=== PATIENT | female | born 1980 | race Caucasian/White ===

== ENCOUNTER 2022-05-03 11:00 | Outpatient (CLI) | payer BC, SELFPAY ==
--- NOTE | ~2022-05-03 | PE_ITS ---
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 10.028 mCi of 18-fluorodeoxyglucose (18-FDG) was adminis tered i.v. Low dose computed tomography (CT) images were acquired from the base of the brain to the p roximal thighs for attenuation correction and anatomic localization. Positron emission tomography (PE T) images were acquired in the same distribution beginning 60 minutes after injection. The dose-lengt h product (DLP) was 221.14 mGy-cm. COMPARISON: 04/18/2022 FINDINGS: Head/neck: No abnormal FDG uptake is identified. FDG activity in the vocal cords without suspicious C T correlate is likely physiologic. Chest: There is a 4.4 x 2.7 cm mass of the left lower lobe which contains calcification. There are so me focal areas of abnormal FDG uptake within the mass with an SUV max of 6.8. Overall size is slightl y increased since the comparison examination. There are airspace opacities of the right middle lobe w hich demonstrate decrease since the comparison CT and demonstrate low-level FDG uptake, likely resolv ing pneumonia. There are multiple calcified bilateral hilar and mediastinal lymph nodes. A partially calcified right lower paratracheal lymph node demonstrates mild FDG uptake with an SUV max of 3.5, pr obable old granulomatous disease. The heart size is normal. There is no pneumothorax. A small left pl eural effusion is present which has decreased in size. Abdomen/pelvis/proximal thighs: Physiologic FDG activity is present in the bowel and urinary tract. N o abnormal FDG uptake is identified. The liver, spleen, pancreas, gallbladder, and adrenal glands are normal. There is a 10 mm nonobstructing stone of the left kidney. The right kidney is unremarkable. No pathologically enlarged abdominal or pelvic lymph nodes are identified. There is no free intraperi toneal gas or evidence of bowel obstruction. A moderate volume of colonic stool is present. Musculoskeletal: No abnormal FDG uptake is identified. IMPRESSION: 1. Left lower lobe mass with focal areas of internal abnormal FDG uptake. Given the presence of an ad jacent pleural effusion, findings could reflect rounded atelectasis with superimposed pneumonia. Diff erential includes underlying malignancy. The only images available for comparison are dated 04/18/2022 . If older comparisons are available, these would be helpful in determining chronicity of the mass. I f unavailable, CT guided biopsy or short-term follow-up in 4-6 weeks could be considered. Reviewed, dictated and finalized at location B. IMPRESSION: 1. Left lower lobe mass with focal areas of internal abnormal FDG uptake. Given the presence of an adjacent pleural effusion, findings could reflect rounded a telectasis with superimposed pneumonia. Differential includes underlying malign stephenie. The only images available for comparison are dated 04/18/2022. If older co mparisons are available, these would be helpful in determining chronicity of th e mass. If unavailable, CT guided biopsy or short-term follow-up in 4-6 weeks c ould be considered.
[2022-05-03 11:55] LABS: Glucose Point of Care 93 mg/dl (65-105)
== END 2022-05-03 11:01 | disposition home or self-care (01) ==
PROVIDERS: PCP Family Medicine; Visit Provider Internal Medicine Hematology & Oncology
DX: C34.32 Malignant neoplasm of lower lobe, left bronchus or lung (principal)
CPT/HCPCS: 78815; A9552

== ENCOUNTER 2022-05-11 01:58 | Outpatient (CLI) | payer BC, SELFPAY ==
[2022-05-04 17:29] VITALS: BMI 17.4
--- NOTE | 2022-05-05 13:37 | PC.NURSE ---
Pre Radiology instructions Report to the Outpatient Waiting Room, entrance under the green pavilion located off [facility], at time ____0900___ on date __05/11/22 . Procedure Time: ____1100____. One visitor will be allowed to accompany the patient into the hospital. The visitor will be instructed to remain with patient at all times or leave the building. We will allow the visitor to come back to the postoperative area when patient is ready. You and your visitor will be asked a series of questions to screen for COVID 19 for your protection. A mask is required within the hospital. Patients are to have no food or drink 6 hours prior to procedure time Driving will be restricted after the procedure, you must have a person to drive you home. Labs will be drawn in preop area and once reviewed, you will be taken to radiology area for procedure. When the procedure is completed, you will be taken to outpatient where you will be monitored for several hours. You may have one visitor in this area. Other than holding anti-coagulants, patient may take other medication(s) as scheduled. Prior to your appointment date patients are instructed to hold anti-coagulants after discussing with ordering provider to stop. If unable to discontinue anti-coagulants please notify radiologist. No aspirin or warfarin (Coumadin) for 7 days prior to the procedure. No clopidogrel (Plavix), ticagrelor (Brilinta), prasugrel (Effient) or dabigatran (Pradaxa) for 5 days prior to the procedure. No rivaroxaban (Xarelto), apixaban (Eliquis), dipyridamole (Aggrenox or Persantine) or cilostazol (Pletal) for 2 days prior to the procedure. Medications to discontinue per physician: NA Date to take last dose: NA Please leave all valuables, including medications, at home the day of procedure. The hospital will not accept responsibility for valuables. Wear comfortable, loose fitting clothing. Follow any additional instructions given to you from ordering provider. Telephone instructions given to ____patient and asked if any additional questions and then verbalized understanding. Patient advised to call scheduling provider office or registration scheduling [phone] if any additional questions.
[2022-05-11] VITALS (11 sets, daily range): BP systolic 94–108; BP diastolic 49–60; PULSE 66–82; RESP 16–18; TEMP 36.8; O2SAT 98–100
--- NOTE | ~2022-05-11 | XR_ITS ---
EXAMINATION: XR chest 1V DATE: 05/11/2022 11:02 INDICATION: Left lung lower lobe mass status post percutaneous biopsy. TECHNIQUE: A single frontal view of the chest was obtained. COMPARISON: Chest CT 04/18/2022 FINDINGS: There is a mass in left lower lobe. There are airspace opacities in right middle lobe. Calc ified pulmonary nodules and calcified hilar and mediastinal lymph nodes are consistent with old granu lomatous disease. No pleural effusion or pneumothorax. The heart size is normal. IMPRESSION: 1. Mass in left lung lower lobe and airspace opacities in right middle lobe, which may be infection o r sarcoid. The left lower lobe mass may less likely be malignancy. Reviewed, dictated and finalized at location A. IMPRESSION: 1. Mass in left lung lower lobe and airspace opacities in right middle lobe, wh ich may be infection or sarcoid. The left lower lobe mass may less likely be ma lignancy.
--- NOTE | ~2022-05-11 | CT_ITS ---
EXAMINATION: CT biopsy lung w/imaging DATE: 05/11/2022 11:01 INDICATION: Left lung lower lobe mass. TECHNIQUE: The procedure including the risks, benefits, and alternatives and possibility of chest tub e placement were discussed with the patient. Risks discussed included infection, hemorrhage, approxim ately 1/3 risk of pneumothorax, approximately 1/10 risk of pneumothorax severe enough to warrant ches t tube placement, and rarely . The patient understood the risks and agreed to proceed. The patie nt was placed prone. The skin overlying the left lower lobe was prepped and draped in sterile fashio n. Anesthetic was administered with 1% lidocaine subcutaneously. A 19 gauge outer needle was advanc ed under CT guidance to the lesion of interest. A 20 gauge core biopsy needle was then used to obtain 3 core biopsy specimens. The needle was removed and the entry site was cleaned and dressed. The mA w as adjusted according to patient size. Iterative reconstruction technique was employed. The dose-tushar th product was 117.64 mGy-cm. There were no immediate complications. FINDINGS: CT images demonstrate the outer needle tip in a 3.6 x 3.3 cm mass in left lung lower lobe. IMPRESSION: 1. CT-guided core needle biopsy of a mass in left lung lower lobe. Reviewed, dictated and finalized at location A.
--- NOTE | ~2022-05-11 | XR_ITS ---
EXAMINATION: XR chest 1V portable DATE: 05/11/2022 14:09 INDICATION: Status post percutaneous left lung biopsy TECHNIQUE: frontal view of the chest was obtained. COMPARISON: Chest radiograph dated 05/11/2022 at 11:55 AM FINDINGS: Masslike airspace opacities in the bilateral lower lung zones. There are also multiple scattered bila teral small calcified pulmonary nodules along with calcified mediastinal and bilateral hilar lymph no billy consistent with old granulomatous disease. No pulmonary edema, pleural effusion or pneumothorax. The cardiomediastinal silhouette is normal. Visualized bones and soft tissues are unremarkable. IMPRESSION: 1. No pneumothorax or other acute cardiopulmonary disease post percutaneous biopsy of a left lower lo be mass. 2. Additional masslike opacity in the right lower lung zone. Differential for both masses would inclu de malignancy, atelectasis, granulomatous disease or infection. Reviewed, dictated and finalized at location A. IMPRESSION: 1. No pneumothorax or other acute cardiopulmonary disease post percutaneous bio psy of a left lower lobe mass. 2. Additional masslike opacity in the right lower lung zone. Differential for b oth masses would include malignancy, atelectasis, granulomatous disease or infe ction.
--- NOTE | ~2022-05-11 | XR_ITS ---
EXAMINATION: XR chest 1V portable DATE: 05/11/2022 11:59 INDICATION: Left lung lower lobe mass status post percutaneous biopsy. TECHNIQUE: A single frontal view of the chest was obtained. COMPARISON: Chest single view at 11:00 AM FINDINGS: There is a mass in left lower lobe. There are airspace opacities in right middle lobe. Calc ified pulmonary nodules and calcified hilar and mediastinal lymph nodes are consistent with old granu lomatous disease. No pleural effusion or pneumothorax. The heart size is normal. IMPRESSION: 1. Mass in left lung lower lobe and airspace opacities in right middle lobe, which may be infection o r sarcoid. The left lower lobe mass may less likely be malignancy. Reviewed, dictated and finalized at location A. IMPRESSION: 1. Mass in left lung lower lobe and airspace opacities in right middle lobe, wh ich may be infection or sarcoid. The left lower lobe mass may less likely be ma lignancy.
[2022-05-11 09:40] LABS: Prothrombin Time 12.8 Seconds (11.1-14.7)
[2022-05-11 09:47] LABS: Mean Platelet Volume 9.8 fl (7.4-10.4); Platelet Count Result 372 k/mm3 (150-375)
--- NOTE | 2022-05-11 11:54 | SUR.PHASEII ---
PORTABLE CXR DONE.
[2022-05-11] MEDS: ACETAMINOPHEN 500 MG TABLET PO (12:55)
--- NOTE | 2022-05-11 14:02 | SUR.PHASEII ---
PORTABLE CXR DONE.
--- NOTE | 2022-05-11 14:15 | SUR.PHASEII ---
DR. MOCK RELEASED PATIENT TO GO HOME.
== END 2022-05-11 14:16 | disposition home or self-care (01) ==
PROVIDERS: PCP Family Medicine; Referring Provider Internal Medicine Hematology & Oncology; Visit Provider Radiology Diagnostic Radiology
PROC: BB24ZZZ Computerized Tomography (CT Scan) of Bilateral Lungs (ICD-10-PCS; CPT 32408; principal; 2022-05-11 11:00)
DX: R91.8 Other nonspecific abnormal finding of lung field (principal)
CPT/HCPCS: 32408; 36415; 71045; 85049; 85610; 88305; 88312; A9270

== ENCOUNTER 2022-07-04 14:30 | Outpatient (CLI) | payer BC, SELFPAY ==
[2022-07-04 15:14] LABS: Creatine Kinase 44 U/L (26-192)
[2022-07-04 15:18] LABS: CRP < 0.2 mg/dL (0.0-0.9)
[2022-07-04 15:29] LABS: Rheumatoid Factor Screen Negative (Negative)
[2022-07-06 13:22] LABS: NIL 0.02 IU/mL; Quantiferon TB Plus, 1T NEGATIVE (NEGATIVE)
[2022-07-06 15:36] LABS: ANA Cascade Screen Negative (Negative)
[2022-07-06 20:58] LABS: Alpha-1-Antitrypsin, QN 120 mg/dL (83-199); Immunoglobulin A 242 mg/dL (47-310); Immunoglobulin G 1153 mg/dL (600-1640); Immunoglobulin M 151 mg/dL (50-300)
[2022-07-06 21:07] LABS: Anti Cyclic Citrullinated Pept <16 Units (<20)
[2022-07-07 22:27] LABS: ANCA Screen Negative (Negative)
[2022-07-08 03:42] LABS: Immunoglobulin E 4 kU/L (<=114)
== END 2022-07-04 14:31 | disposition home or self-care (01) ==
PROVIDERS: PCP Family Medicine; Visit Provider Internal Medicine Pulmonary Disease
DX: J84.9 Interstitial pulmonary disease, unspecified (principal); R91.8 Other nonspecific abnormal finding of lung field
CPT/HCPCS: 36415; 82085; 82103; 82104; 82550; 82784; 82785; 86036; 86038; 86140; 86200; 86331; 86430; 86480; 86606; 86609; 87015; 87070; 87116; 87205; 87206

== ENCOUNTER 2022-07-05 15:16 | Outpatient (CLI) | payer BC, SELFPAY | END 2022-07-05 15:17 | disposition home or self-care (01) | LOC: CHSLAB 15:18 | PROVIDERS: PCP Family Medicine; Visit Provider Internal Medicine Pulmonary Disease | DX: R91.8 Other nonspecific abnormal finding of lung field (principal) | CPT/HCPCS: 87015; 87070; 87116; 87205; 87206 ==

== ENCOUNTER 2022-07-06 15:05 | Outpatient (CLI) | payer BC, SELFPAY | END 2022-07-06 15:06 | disposition home or self-care (01) | LOC: CHSLAB 15:07 | PROVIDERS: PCP Family Medicine; Visit Provider Internal Medicine Pulmonary Disease | DX: R91.8 Other nonspecific abnormal finding of lung field (principal) | CPT/HCPCS: 87015; 87070; 87116; 87205; 87206 ==

== ENCOUNTER 2022-07-14 01:08 | Day surgery (SDC) | payer BC, SELFPAY ==
[2022-07-06 15:34] VITALS: BMI 17.3
[2022-07-14] VITALS (8 sets, daily range): BP systolic 93–115; BP diastolic 56–70; PULSE 57–71; RESP 16–32; TEMP 36.5–36.8; O2SAT 98–100
--- NOTE | ~2022-07-14 | XR_ITS ---
EXAMINATION: XR chest 2V DATE: 07/14/2022 08:36 INDICATION: Mass in left lung lower lobe. TECHNIQUE: Frontal and lateral views of the chest were obtained. COMPARISON: Chest CT 06/24/2022 FINDINGS: There is a mass in left lung lower lobe. Calcified pulmonary nodules and calcified hilar an d mediastinal lymph nodes are consistent with old granulomatous disease. There is a small left pleura l effusion. No pneumothorax. The heart size is normal. IMPRESSION: 1. Mass in left lung lower lobe, likely chronic pneumonia. 2. Small left pleural effusion. Reviewed, dictated and finalized at location B.
--- NOTE | ~2022-07-14 | XR_ITS ---
XR fl bronchoscopy w imaging 07/14/2022 12:02 Bronchoscopy TECHNIQUE: Fluoroscopy used during bronchoscopy performed by [Kevin Mcnally MD] on 07/14/20 22. Fluoroscopy time is 68 seconds with 1 images captured. FINDINGS: Correlate with procedure note. IMPRESSION: Fluoroscopy used during bronchoscopy. Reviewed, dictated and finalized at location A.
--- NOTE | ~2022-07-14 | XR_ITS ---
EXAMINATION: XR chest 1V portable DATE: 07/14/2022 12:14 INDICATION: Left lung mass status post bronchoscopy. TECHNIQUE: A single frontal view of the chest was obtained. COMPARISON: Chest 2 views 07/14/2022 FINDINGS: There is a mass in left lower lobe. Calcified pulmonary nodules and calcified hilar and med iastinal lymph nodes are consistent with old granulomatous disease. There is a small left pleural eff usion. No pneumothorax. The heart size is normal. IMPRESSION: 1. Mass in left lung lower lobe, likely chronic pneumonia. 2. Stable small left pleural effusion. Reviewed, dictated and finalized at location A.
[2022-07-14] MEDS: LACTATED RINGERS 1,000 ML 150 ML IV CONT (09:12)
[2022-07-14 09:24] LABS: Hematocrit 35.4 % (37.0-47.0); Mean Corpuscular HGB Conc 31.1 g/dl (32-36); Mean Corpuscular Hemoglobin 26.4 pg (26-34); Mean Corpuscular Volume 85.1 fl (80-100); Platelet Count Result 363 k/mm3 (150-375); Red Blood Count 4.16 M/mm3 (4.2-5.4); Red Cell Distribution Width 15.4 % (11.5-14.5); White Blood Count 7.9 K/mm3 (4.5-10.0)
[2022-07-14 09:31] LABS: INR 1.1; Prothrombin Time 13.5 Seconds (11.1-14.7)
[2022-07-14 09:32] LABS: Partial Thromboplastin Time 31.6 SECONDS (22.3-36.8)
[2022-07-14 09:40] LABS: Alanine Aminotransferase 13 U/L (6-35); Albumin Level 4.5 g/dL (3.5-5.1); Alkaline Phosphatase 105 U/L (38-126); Anion Gap 14 mmol/L (8-16); Aspartate Amino Transferase 34 U/L (14-36); Bilirubin,Total 0.6 mg/dL (0.2-1.3); Blood Urea Nitrogen 12 mg/dL (7-17); Calcium 9.4 mg/dL (8.4-10.2); Carbon Dioxide 22 mmol/L (22-30); Chloride 104 mmol/L (98-107); Estimated CRCL calculation 48 ml/min; Estimated Glomerular Filt Rate > 60; Glucose 85 mg/dL (65-110); Potassium 4.3 mmol/L (3.4-5.0); Sodium 140 mmol/L (137-145)
--- NOTE | 2022-07-14 10:31 | WPDANESEPPF ---
Anes - Initial Pre Proc Eval Procedure: Operation Date: 07/14/22 10:45 Proposed Procedures p Flexible Bronchoscopy w Fluoro - Kevin Mcnally MD Date/Time: 07/14/22 10:32 Surgeon: Kevin Mcnally MD Pre Op Diagnosis: lung mass left lower lobe Patient Data Age: 41 Gender: F Height: 1.57 m Weight: 42.2 kg Last Vital Signs Temp 97.7 F 07/14/22 08:49 Pulse 71 07/14/22 08:49 Resp 16 07/14/22 08:49 BP 99/60 L 07/14/22 08:49 Pulse Ox 100 07/14/22 08:49 O2 Del Method Room Air 07/14/22 08:49 Allergies Allergy/AdvReac Type Severity Reaction Status Date / Time marijuana (cannabis) Allergy Severe Anaphylactic Verified 07/14/22 08:47 Shock Home Medications Medication Instructions Recorded Confirmed Type bupropion HCl 150 mg 24 hr tablet, 150 mg PO DAILY 05/04/22 07/06/22 History extended release (Wellbutrin XL) celecoxib 200 mg capsule (Celebrex) 200 mg PO BID PRN Pain 05/04/22 07/06/22 History topiramate 50 mg tablet (Topamax) 50 mg PO DAILY 05/04/22 07/06/22 History trazodone 100 mg tablet 100 mg PO HS PRN Insomnia 05/04/22 07/06/22 History Laboratory Tests 07/14/22 07/14/22 07/14/22 09:09 09:09 09:09 WBC 7.9 K/mm3 K/mm3 (4.5-10.0) RBC 4.16 M/mm3 L M/mm3 (4.2-5.4) Hgb 11.0 g/dL L g/dL (12.0-15.0) Hct 35.4 % L % (37.0-47.0) MCV 85.1 fl fl (80-100) MCH 26.4 pg pg (26-34) MCHC 31.1 g/dl L g/dl (32-36) RDW 15.4 % H % (11.5-14.5) Plt Count 363 k/mm3 k/mm3 (150-375) MPV 10.0 fl fl (7.4-10.4) PT 13.5 Seconds Seconds (11.1-14.7) INR 1.1 APTT 31.6 SECONDS SECONDS (22.3-36.8) Sodium 140 mmol/L mmol/L (137-145) Potassium 4.3 mmol/L mmol/L (3.4-5.0) Chloride 104 mmol/L mmol/L (98-107) Carbon Dioxide 22 mmol/L mmol/L (22-30) Anion Gap 14 mmol/L mmol/L (8-16) BUN 12 mg/dL mg/dL (7-17) Creatinine 0.90 mg/dL mg/dL (0.7-1.0) Estim Creat Clear Calc 48 ml/min ml/min Estimated GFR > 60 (59 - ) Glucose 85 mg/dL mg/dL (65-110) Calcium 9.4 mg/dL mg/dL (8.4-10.2) Total Bilirubin 0.6 mg/dL mg/dL (0.2-1.3) AST 34 U/L U/L (14-36) ALT 13 U/L U/L (6-35) Alkaline Phosphatase 105 U/L U/L (38-126) Total Protein 8.0 g/dL g/dL (6.3-8.2) Albumin 4.5 g/dL g/dL (3.5-5.1) Patient hx anesthesia problems: none Family hx anesthesia problems: none Results Review: All pre-operative results and documents have been reviewed as part of the pre-operative evaluation. [facility] Past Medical History Medical History (Updated 07/04/22 @ 10:27 by Kevin Mcnally MD) Depression Migraine Surgical History Surgical History (Updated 07/04/22 @ 09:32 by Sharda Cowan CMA) History of lung biopsy Social History Social History (Updated 07/04/22 @ 09:32 by Sharda Cowan CMA) Smoking packs per day: 1 Smoking cigarettes per day: 20.0 Years smoked: 24 Smoking pack-years: 24.00 Smoking status: Former smoker Tobacco type: cigarettes Smoking end date: 10/09/19 Alcohol intake: current Drinks per week: 1 Substance use: never Substance use type: does not use Living arrangements: with family Spiritual care concerns: No Anes - Eval Final PreProcedure Day of Procedure 07/14/22 10:32 Patient weight: thin Heart: regular rate and rhythm Lungs: clear to auscultation Airway: Mallampati scale class II Neurological: alert and oriented Last oral intake: >/= 8 hours ASA classification: III Emergent: no Anesthetic plan: proceed Anesthesia type and monitoring: general ETT and standard monitoring Results Review: All pre-operative results and documents have been reviewed as part of the pre-operative evaluation. Informed Conse
--- NOTE | 2022-07-14 10:35 | PM.IMHP ---
H&P: HPI History of Present Illness Date/Time: 07/14/22 10:35 Chief Complaint: Patient presents for outpatient bronchoscopy Patient with a longstanding history of allergic rhinitis in the spring and winter receives antibiotics twice a year since her teenage years, pneumonia in October of 2019, pleurisy , pneumonia in January of 2021, and most recently treated for pneumonia and pleurisy on 04/12/2022.? Patient noted to have a left lung mass and RML infiltrates s/p PET scan with? focal areas of internal abnormal FDG uptake.? Patient underwent a CT-guided biopsy on 05/11/2022 which showed lung alveolar tissue in chronically inflamed fibrous tissue.? Negative for malignancy.? Negative for GMS and AFB stains. ? Patient has a 24 pack year history of tobacco quit in 2019 and also has hemoptysis. I reviewed the CT scan from the outside hospital on 06/24/2022 with the radiologist and patient's right middle lobe infiltrate has improved but her left lower lobe mass with surrounding infiltrate persists.. today patient presents for outpatient bronchoscopy. Patient states that her shortness of breath is mildly better. She has no more hemoptysis but she still has continued pain and mucus production. Today she has no fever. Review of Systems Constitutional: Constitutional: Reports no additional constitutional complaints Eyes: Eyes: Reports no additional eye complaints ENT: Reports system reviewed and no additional complaints, except as documented Cardiovascular: Cardiovascular: Reports no additional cardiovascular complaints Respiratory: Respiratory: Reports no additional respiratory complaints Gastrointestinal: Gastrointestinal: Reports no additional gastrointestinal complaints Musculoskeletal: Musculoskeletal: Reports no additional musculoskeletal complaints Neurologic: Reports system reviewed and no additional complaints, except as documented Psychiatric: Psychiatric: Reports no additional psychiatric complaints Endocrine: Endocrine: Reports no additional endocrine complaints Hematologic/Lymphatic: Hematologic/Lymphatic: Reports no additional hematologic/lymphatic complaints Allergic/Immunologic: Allergic/Immunologic: Reports no additional allergic/immunologic complaints [facility] Past Medical History Medical History (Updated 07/04/22 @ 10:27 by Kevin Mcnally MD) Depression Migraine Surgical History Surgical History (Updated 07/04/22 @ 09:32 by Sharda Cowan CMA) History of lung biopsy Social History Social History (Updated 07/04/22 @ 09:32 by Sharda Cowan CMA) Smoking packs per day: 1 Smoking cigarettes per day: 20.0 Years smoked: 24 Smoking pack-years: 24.00 Smoking status: Former smoker Tobacco type: cigarettes Smoking end date: 10/09/19 Alcohol intake: current Drinks per week: 1 Substance use: never Substance use type: does not use Living arrangements: with family Spiritual care concerns: No Meds Home Medications and Allergies Home Medications Medication Instructions Recorded Confirmed Type bupropion HCl 150 mg 24 hr tablet, 150 mg PO DAILY 05/04/22 07/06/22 History extended release (Wellbutrin XL) celecoxib 200 mg capsule (Celebrex) 200 mg PO BID PRN Pain 05/04/22 07/06/22 History topiramate 50 mg tablet (Topamax) 50 mg PO DAILY 05/04/22 07/06/22 History trazodone 100 mg tablet 100 mg PO HS PRN Insomnia 05/04/22 07/06/22 History Allergies Allergy/AdvReac Type Severity Reaction Status Date / Time marijuana (cannabis) Allergy Severe Anaphylactic Verified 07/14/22 08:47 Shock Vital Signs Vital Signs - 24 hr 07/14/22 08:49 Temperature 36.5 C Pulse Rate 71 Respiratory Rate 16 Blood Pressure 99/60 L Pulse Oximetry 100 Oxygen Delivery Room Air Exam Const: General: cooperative, healthy appearing and comfortable Orientation/consciousness: oriented to person, oriented to place and oriented to time HENMT: Head: normal to inspection E
[2022-07-14] MEDS: LIDOCAINE HCL 2% LOCAL INJ 20 ML VIAL INFILTRATE (12:17)
--- NOTE | 2022-07-14 12:22 | SUR.OPER ---
165ml of sodium chloride total used in washings. 32ml total returned.
--- NOTE | 2022-07-14 12:33 | SUR.PHASEII ---
Spoke with Dr Mcnally- chest x ray results read and states patient okay to discharge.
[2022-07-14 14:25] LABS: Appearance Bronchial Fluid Cloudy; Color Bronchial Fluid Colorless; Lymphocytes Bronchial Fluid 66 %; Macrophages Bronchial Fluid 5; Monocytes Bronchial Fluid 6 %; Neutrophils Bronchial Fluid 23 %; Source Bronchial Fluid Bronchial Lavage
== END 2022-07-14 13:02 | disposition home or self-care (01) ==
PROVIDERS: PCP Family Medicine; Visit Provider Internal Medicine Pulmonary Disease
PROC: BB1DZZZ Fluoroscopy of Upper Airways (ICD-10-PCS; CPT 31624; principal; 2022-07-14 10:30)
DX: J84.10 Pulmonary fibrosis, unspecified (principal); R04.2 Hemoptysis; F32.A Depression, unspecified; Z87.01 Personal history of pneumonia (recurrent); Z87.891 Personal history of nicotine dependence
CPT/HCPCS: 31623; 31629; 36415; 71045; 71046; 80053; 85027; 85610; 85730; 85999; 87015; 87070; 87102; 87116; 87205; 87206; 88108; 88160; 88305; 88312; 99199; J0330; J2405; J2704; J3010; J7040; J7120

== ENCOUNTER 2022-09-12 14:45 | Outpatient (CLI) | payer BC, SELFPAY ==
--- NOTE | ~2022-09-12 | CT_ITS ---
EXAMINATION: CT diagnostic chest w con DATE: 09/12/2022 15:19 INDICATION: Massive left lower lobe TECHNIQUE: Computed tomography (CT) of the chest was performed without intravenous contrast. Automate d exposure control and iterative reconstruction technique were employed. Exam dose: 129.31 mGy-cm to onur exam DLP. COMPARISON: 05/03/2000 2210/CT scanner FINDINGS: Posterior lateral left lower lobe mass density measures up to approximately 3.3 cm maximal dimension compared to approximately 3.9 cm maximal dimension on 05/03/2022. There was a benign 8 5 / 022 CT guided percutaneous lung biopsy result including fibrosis, inflammation. There are some promin ent calcifications associated with this lesion and scattered additional bilateral calcified pulmonary granulomas in addition to numerous bilateral calcified hilar and mediastinal nodes, consistent with old pulmonary granulomatous disease. No interval pulmonary infiltrate or consolidation or pulmonary suspicious mass lesion is noted. No pleural effusion or pneumothorax. No interval hilar or mediastinal mass lesion or adenopathy. No thoracic aortic aneurysm or calcification. Normal heart size. No pericardial or pleural effusion. Normal morphology of the adrenal glands. No suspicious osteolytic or osteoblastic lesions are noted. IMPRESSION: Mildly diminished size of posterior left lower lobe lung mass with multiple calcificatio ns, currently measuring up to 3.3 cm versus prior up to 3.9 cm dimension on 05/[address]-guide d lung biopsy result showed fibrosis and inflammation, no malignancy Extensive old pulmonary granulomatous disease Reviewed, dictated and finalized at Location A. Reviewed, dictated and finalized at location B. STRIPPER IMPRESSION: Mildly diminished size of posterior left lower lobe lung mass with multiple calcifications, currently measuring up to 3.3 cm versus prior up to 3 .9 cm dimension on 05/[address]-guided lung biopsy result showed fibrosi s and inflammation, no malignancy Extensive old pulmonary granulomatous disease
== END 2022-09-12 14:46 | disposition home or self-care (01) ==
PROVIDERS: PCP Family Medicine; Visit Provider Internal Medicine Hematology & Oncology
DX: R91.8 Other nonspecific abnormal finding of lung field (principal)
CPT/HCPCS: 71260; Q9967

== ENCOUNTER 2022-12-19 12:14 | Outpatient (CLI) | payer BC, SELFPAY ==
--- NOTE | ~2022-12-19 | CT_ITS ---
Clinical Indication: Left lung mass CT Scan of the Chest with Contrast: Technique: Contiguous sections were acquired throughout the chest after intravenous administration of 75 cc of Omnipaque 350. Dose reduction technique was used on this scan by utilizing automated exposu re control and iterative reconstruction technique. The dose-length product (DLP) was 139.95 mGy-cm. COMPARISON: 09/12/2022 Findings: Extensively calcified mediastinal and hilar lymph nodes are similar to prior exam. Largest node is at the right paratracheal stripe measuring approximately 2 cm in diameter.. There is no filling defect in the pulmonary arterial tree to suggest pulmonary embolus. There is no evidence of aortic dissectio n or aneurysm. There is no evidence of pleural or pericardial effusion. Left lower lobe pulmonary mass is unchanged from prior exam, measuring approximately 3 cm in maximum diameter. Focal coarse central calcification again noted. Multiple scattered bilateral pulmonary gran ulomas are also essentially unchanged. Images through the upper abdomen reveal moderate to severe left hydronephrosis, similar to prior exam . Impression: Stable 3 cm left lower lobe pulmonary mass with focal coarse internal calcification. Numerous calcified mediastinal and hilar lymph nodes, as well as additional scattered pulmonary calci fications, is, are unchanged from prior exam as well. Moderate to severe left hydronephrosis, similar to prior exam. Reviewed, dictated and finalized at location . Impression: Stable 3 cm left lower lobe pulmonary mass with focal coarse internal calcifica tion. Numerous calcified mediastinal and hilar lymph nodes, as well as additional sca ttered pulmonary calcifications, is, are unchanged from prior exam as well. Moderate to severe left hydronephrosis, similar to prior exam.
== END 2022-12-19 12:15 | disposition home or self-care (01) ==
PROVIDERS: PCP Family Medicine; Visit Provider Internal Medicine Pulmonary Disease
DX: R91.8 Other nonspecific abnormal finding of lung field (principal); N13.30 Unspecified hydronephrosis
CPT/HCPCS: 71260; Q9967

== ENCOUNTER 2023-02-10 13:43 | Outpatient (CLI) | payer BC, SELFPAY ==
--- NOTE | ~2023-02-10 | XR_ITS ---
Supine and upright views of the abdomen Clinical history: Left ureteral stone to mid Findings: Bowel gas pattern is nonspecific. No evidence for obstruction or free air. Right renal ston es present, measuring 2 mm in size. Probable punctate left renal stone. Osseous structures are intact . Impression: Probable small bilateral renal stones, as above. Reviewed, dictated and finalized at [facility]. Impression: Probable small bilateral renal stones, as above.
--- NOTE | ~2023-02-10 | CT_ITS ---
EXAMINATION: CT abdomen pelvis wo con DATE: 02/10/2023 14:06 INDICATION: LEFT URETERAL STONE TECHNIQUE: Computed tomography (CT) of the abdomen and pelvis was performed without intravenous contr ast. Automated exposure control and iterative reconstruction technique were employed. The dose-length product was 163.23 mGy-cm. COMPARISON: CT chest 12/19/2022. FINDINGS: Lower thorax: Bibasilar scar. Partially visualized grossly stable left lower lobe mass. Liver: Normal. Biliary/Gallbladder: Gallbladder is normal. No bile duct dilation. Pancreas: No mass or duct dilation. Spleen: Normal. Adrenals:No mass. Kidneys: Multiple punctate left renal calcifications. Right midpole renal calcifications measuring 2 and 3 mm. Punctate right inferior pole calcification. No mass, obstructing stone, or hydronephrosis. GI tract: No small or large bowel dilation. Normal appendix. Mesentery/Peritoneum: No ascites, mass, or free air. Retroperitoneum: No mass. Pelvis: Pelvic organs are within normal limits. Free pelvic fluid, within physiologic range. Soft Tissues: Soft tissues and body wall unremarkable. Bones: No acute osseous finding. IMPRESSION: Bilateral nephrolithiasis. Grossly stable left lower lobe mass. Reviewed, dictated and finalized at location K.
== END 2023-02-10 13:44 | disposition home or self-care (01) ==
LOC: ANHIMG 13:45
PROVIDERS: PCP Family Medicine; Visit Provider Urology
DX: N20.1 Calculus of ureter (principal)
CPT/HCPCS: 74018; 74176

== ENCOUNTER 2023-06-21 10:46 | Outpatient (CLI) | payer BC, SELFPAY ==
--- NOTE | ~2023-06-21 | CT_ITS ---
EXAMINATION: CT diagnostic chest wo con DATE: 06/21/2023 11:18 INDICATION: Lung mass TECHNIQUE: Computed tomography (CT) of the chest was performed without intravenous contrast. The dose -length product (DLP) was 128.65 mGy-cm. Automated exposure control and iterative reconstruction tech nique were employed. COMPARISON: 12/19/2022, 09/12/2022 FINDINGS: Again seen is a masslike airspace opacity of the left lower lobe containing calcification. Overall volume of the affected region does not appear significantly changed since the comparison exam inations. There are multiple calcified lung nodules, bilateral hilar, and mediastinal lymph nodes wit hout significant change. No acute airspace opacities are identified. No pleural effusion or pneumotho rax. The heart size is normal. IMPRESSION: 1. Stable masslike consolidation of the left lower lobe with two prior benign biopsies. 2. Calcified mediastinal and bilateral hilar lymph nodes, likely old granulomatous disease. Reviewed, dictated and finalized at location F. IMPRESSION: 1. Stable masslike consolidation of the left lower lobe with two prior benign b iopsies. 2. Calcified mediastinal and bilateral hilar lymph nodes, likely old granulomat ous disease.
== END 2023-06-21 10:47 | disposition home or self-care (01) ==
PROVIDERS: PCP Family Medicine; Visit Provider Internal Medicine Pulmonary Disease
DX: R91.8 Other nonspecific abnormal finding of lung field (principal)
CPT/HCPCS: 71250

== ENCOUNTER 2023-12-18 13:43 | Outpatient (CLI) | payer BC, SELFPAY ==
--- NOTE | ~2023-12-18 | CT_ITS ---
EXAMINATION: CT diagnostic chest wo con DATE: 12/18/2023 14:04 INDICATION: R91.8 - Other nonspecific abnormal finding of lung field TECHNIQUE: Computed tomography (CT) of the chest was performed without intravenous contrast. Addition al 3D reconstructions utilizing coronal maximum intensity projection (MIP) were performed. Automated exposure control and iterative reconstruction technique were employed. The dose-length product was 1 17.56 mGy-cm. COMPARISON: 06/21/2023, 12/19/2022 and 09/12/2022 FINDINGS: There are multiple scattered bilateral calcified pulmonary nodules along with calcified bilateral hil ar and mediastinal lymph nodes consistent with old granulomatous disease. Again seen is focal airspac e disease in the posterior basilar segment of the left lower lobe which appears to be comprised of a central mass along a more bandlike region of consolidation. The masslike region appears without signi ficant interval change. There is however further medial extension of the bandlike opacity which now e ncompasses a few of the small calcified nodules previously within aerated lung. Utilizing the calcifi ed nodules in the bronchi as landmarks there appears to be some associated volume loss. There are few scattered small noncalcified pulmonary nodules which are without significant interval change since t he largest measuring 304 mm in the left lower lobe along the posterior margin of the major fissure. N o new nodules, pneumonia, pulmonary edema or pleural effusion. Heart size is normal. No pericardial e ffusion. Thoracic aorta is normal in caliber. No pathologically enlarged thoracic lymphadenopathy. Le ft nephrolithiasis with 6 mm stone at the lower pole and smaller stone which is distorted by motion a rtifact at the upper pole. IMPRESSION: 1. Chronic opacity in the left lower lobe with central masslike appearance and more bandlike peripher al appearance. There is been some more medial progression of the more peripheral bandlike portion of the opacity with some associated volume loss suggesting this represents new atelectasis/scarring. Rem ainder of the opacities including central masslike component appears without significant interval damon nge attending for differences in technique. A prior biopsy the masslike component on 05/11/2022 demonst rated lung alveolar tissue and chronically inflamed fibrous tissue. Negative for microorganisms by G MS and AFB stains. Negative for malignancy. 2. Left nephrolithiasis. Reviewed, dictated and finalized at location B. IMPRESSION: 1. Chronic opacity in the left lower lobe with central masslike appearance and more bandlike peripheral appearance. There is been some more medial progression of the more peripheral bandlike portion of the opacity with some associated vo lume loss suggesting this represents new atelectasis/scarring. Remainder of the opacities including central masslike component appears without significant int erval change attending for differences in technique. A prior biopsy the masslik e component on 05/11/2022 demonstrated lung alveolar tissue and chronically infl catherine fibrous tissue. Negative for microorganisms by GMS and AFB stains. Negativ e for malignancy. 2. Left nephrolithiasis.
== END 2023-12-18 13:44 | disposition home or self-care (01) ==
PROVIDERS: PCP Family Medicine; Visit Provider Internal Medicine Pulmonary Disease
DX: R91.8 Other nonspecific abnormal finding of lung field (principal); N20.0 Calculus of kidney
CPT/HCPCS: 71250